=== PATIENT | female | born 1970 | race Caucasian/White ===

== ENCOUNTER 2019-09-04 01:23 | Day surgery (SDC) | payer BC, SELFPAY ==
[2019-08-23 15:20] VITALS: BMI 32.1
--- NOTE | 2019-09-04 00:54 | PM.IMHP ---
H&P: HPI History of Present Illness Chief complaint: endocervical polyp Narrative: Ana Orellana is a 49 year old female with an endocervical polyp. This polyp has been present on speculum exams for past few years, however, appears to have enlarged recently. Patient is currently asymptomatic and denies any unusual vaginal bleeding or spotting. Due to possible recent changes in the characteristics of the polyp, excision was recommended. Review of Systems Review of Systems: All systems reviewed & are unremarkable except as noted in HPI and below Constitutional: Constitutional: Reports as per HPI, Reports no additional constitutional complaints, Denies chills, Denies fever(s), Denies headache(s) and Denies night sweats Eyes: Eyes: Reports as per HPI and Reports no additional eye complaints ENT: Reports system reviewed and no additional complaints, except as documented, Reports as per HPI, Reports Normal hearing present and Denies headache(s) Cardiovascular: Cardiovascular: Reports as per HPI, Reports no additional cardiovascular complaints, Denies chest pain and Denies dyspnea Respiratory: Respiratory: Reports as per HPI, Reports no additional respiratory complaints, Denies cough and Denies dyspnea Gastrointestinal: Gastrointestinal: Reports as per HPI, Reports no additional gastrointestinal complaints, Denies abdominal pain, Denies change in bowel habits, Denies change in stool character, Denies nausea and Denies vomiting Genitourinary: Genitourinary: Reports no additional female genitourinary complaints, Reports as per HPI, Denies abnormal vaginal bleeding, Denies genital lesions, Denies hot flashes, Denies dyspareunia, Denies pelvic pain, Denies sexual dysfunction, Denies urinary incontinence, Denies vaginal discharge, Denies vaginal dryness and Denies vaginal odor Musculoskeletal: Musculoskeletal: Reports no additional musculoskeletal complaints and Reports as per HPI Integumentary/Breasts: Skin/Breast: Reports system reviewed and no additional complaints, except as docu, Reports as per HPI, Denies breast pain and Denies nipple discharge Neurologic: Reports system reviewed and no additional complaints, except as documented, Reports as per HPI, Reports Normal hearing present and Denies headache(s) Psychiatric: Psychiatric: Reports no additional psychiatric complaints, Reports as per HPI, Denies anxiety and Denies depression Endocrine: Endocrine: Reports no additional endocrine complaints and Reports as per HPI Hematologic/Lymphatic: Hematologic/Lymphatic: Reports no additional hematologic/lymphatic complaints and Reports as per HPI Allergic/Immunologic: Allergic/Immunologic: Reports no additional allergic/immunologic complaints and Reports as per HPI [facility] Past Medical History Medical History Anxiety Bipolar disorder Mixed hyperlipidemia Paresthesia and pain of both upper extremities Vaginal delivery Family History Family History Sibling Diabetes mellitus Patient's sister is in good health Mother Diabetes mellitus, Onset Age: 59 Father Hypertension Patient's father is in good health Social History Social History Social History: Smoking status: Never smoker Second hand tobacco smoke exposure: No Alcohol intake: never Substance use: never Substance use type: does not use Living arrangements: with family Occupation/Education: unemployed Gender identity (if verbalized by the patient): Female Meds Home Medications and Allergies Home Medications Medication Instructions Recorded Confirmed Type asenapine maleate 5 mg sublingual 5 mg SUBLINGUAL QPM 05/23/19 08/23/19 History tablet ketoconazole 2 % shampoo 1 applic TOPICAL 2XW 05/23/19 08/23/19 History multivitamin 2 tablet PO DAILY 07/26/19 08/23/19 History benzonatat
--- NOTE | 2019-09-04 06:43 | WPDANESEPPF ---
Anes - Initial Pre Proc Eval Procedure: Operation Date: 09/04/19 07:30 Proposed Procedures p Hysteroscopic Removal Endocervical Polyp - Jaclyn Dumont MD Date/Time: 09/04/19 06:43 Surgeon: Jaclyn Dumont MD Pre Op Diagnosis: endocervical polyp Patient Data Age: 49 Gender: F Height: 5 ft 7 in Weight: 92.99 kg Allergies Allergy/AdvReac Type Severity Reaction Status Date / Time Sulfa (Sulfonamide Allergy Unknown rash Verified 09/04/19 06:33 Antibiotics) Home Medications Medication Instructions Recorded Confirmed Type asenapine maleate 5 mg sublingual 5 mg SUBLINGUAL QPM 05/23/19 09/04/19 History tablet ketoconazole 2 % shampoo 1 applic TOPICAL 2XW 05/23/19 09/04/19 History multivitamin 2 tablet PO DAILY 07/26/19 09/04/19 History benzonatate 200 mg capsule 200 mg PO TID PRN #30 cap 08/28/19 08/28/19 Rx hydrochlorothiazide 12.5 mg tablet 12.5 mg PO QAM #90 tablet 08/28/19 08/28/19 Rx Patient hx anesthesia problems: none Family hx anesthesia problems: none PMFSH Past Medical History Medical History Anxiety Bipolar disorder Mixed hyperlipidemia Paresthesia and pain of both upper extremities Vaginal delivery Family History Family History Sibling Diabetes mellitus Patient's sister is in good health Mother Diabetes mellitus, Onset Age: 59 Father Hypertension Patient's father is in good health Social History Social History Social History: Smoking status: Never smoker Second hand tobacco smoke exposure: No Alcohol intake: never Substance use: never Substance use type: does not use Gender identity (if verbalized by the patient): Female Anes - Eval Final PreProcedure Day of Procedure 09/04/19 06:43 Patient weight: obese Heart: regular rate and rhythm Lungs: clear to auscultation Airway: Mallampati scale class II Neurological: alert and oriented Last oral intake: >/= 8 hours ASA classification: I Emergent: no Anesthetic plan: proceed Anesthesia type and monitoring: general GIVS and standard monitoring Informed Consent: The patient's anesthetic plan and its attendant risks and benefits were discussed with the patient/family/POA. Questions were solicited and answers provided to the satisfaction of the patient/family/POA.
[2019-09-04 06:57] VITALS: BP 143/79; PULSE 108; RESP 14; TEMP 37.2; O2SAT 100; BMI 32.4
[2019-09-04] MEDS: SCOPOLAMINE 1.5 MG PATCH TRANSDERM (07:01)
[2019-09-04] MEDS: LACTATED RINGERS 1,000 ML 30 ML IV CONT (07:01)
--- NOTE | 2019-09-04 07:13 | WPDHPUPDATE1 ---
History and Physical Update Update Date/Time: 09/04/19 07:13 History and Physical has been reviewed, including an updated exam of the patient. There are NO changes in the patient's condition. Risks, benefits, and alternatives have been discussed and questions answered. Patient agrees to proceed with procedure.
[2019-09-04] MEDS: KETOROLAC 30 MG/ML VIAL (*BKC) IV PUSH (07:57)
[2019-09-04 08:06] VITALS: BP 117/63; PULSE 92; RESP 14; O2SAT 98
--- NOTE | 2019-09-04 08:09 | P.OP_ITS ---
Procedure Note - Detailed Date of procedure: 09/04/19 Pre-op diagnosis: endocervical polyp Post-op diagnosis: other (endocervical polyps, endometrial polyp) Procedure performed: Hysteroscopy Dilation and curettage Endocervical polypectomy Description of procedure: The patient was taken to the operating room where she self transferred to the operating room table. She was placed in dorsal supine position. Anesthesia was administered and found to be adequate. The patient was repositioned in dorsal lithotomy position with the use of Victor Manuel stirrups. She was prepped and draped in usual sterile fashion. A red rubber catheter was used to drain the bladder of 1200 cc of clear urine. A bivalve speculum was inserted into the vagina. The cervix was well visualized and a 1.5-2 cm endocervical polyp protruding through the cervical os was well visualized. A single tooth tenaculum was used to grasp the anterior lip of the cervix. 10 cc of 1% lidocaine was used to administer a paracervical block with 5 cc on either side. The cervix was serially dilated to accommodate the hysteroscope. The hysteroscope was slowly introduced through the cervix and into the endometrial cavity so that a thorough evaluation could be completed. The base of the endocervical polyp visible externally was noted just inside of the endocervical canal. Incidentally, however, a few endometrial polyps were also visualized once the hysteroscope was advanced. Scant endometrial tissue was also noted. The tubal ostia were not seen. A few pictures were taken of the endometrial cavity and endocervical canal. The hysteroscope was withdrawn. With the use of ring forceps, the larger endocervical polyp was grasped just inside of the endocervical canal as close to the base as possible. The ring forceps were rotated and the polyp was completely excised. This polyp was prepared to be sent to pathology for analysis. Due to the incidental finding of endometrial polyps, decision was made to perform a curettage of the endometrial cavity. Using a medium-sized curette, the endometrial cavity was explored and small to medium sized fragments of polypoid tissue was removed. The endometrial curettings were prepared separately to be sent to pathology. A 2nd pass with the hysteroscope was performed, however, visualization was obscured by blood tinged fluid. Hysteroscope was removed. A minimal amount of bleeding was noted within the endocervical canal. Monsel's was applied with excellent hemostasis. The tenaculum was removed. A pinpoint area of bleeding was noted from the tenaculum puncture site. This area was made hemostatic with Monsel's. E xcellent hemostasis was noted. The vagina was cleansed and dried and the speculum was removed. The remainder of the patient was cleansed and dried. She was taken out of dorsal lithotomy position and awakened from anesthesia without difficulty. The patient was transported to the recovery room in stable condition. All instrument counts were correct in the procedure. Anesthesia: MAC Surgeon: Jaclyn Dumont MD Estimated blood loss (mL): 10 IV fluids (mL): 700 Urine output (mL): 1,200 Drains: No Packing: No Pathology: yes (endocervical polyp, endometrial curettings) Complications: No immediate complications Condition: stable Disposition: same day Findings: Hysteroscopic fluid: 400cc in/400cc out Intraoperative findings: approx. 1.5-2 cm endocervical polyp, few endometrial polyps, scant endometrial tissue
[2019-09-04 08:30] VITALS: BP 120/69; PULSE 83; RESP 114
[2019-09-04 09:10] VITALS: BP 132/81; PULSE 82; RESP 14
== END 2019-09-04 09:00 | disposition home or self-care (01) ==
PROVIDERS: PCP Family Medicine; Visit Provider Student in an Organized Health Care Education/Training Program
PROC: 0U5B8ZZ Destruction of Endometrium, Via Natural or Artificial Opening Endoscopic (ICD-10-PCS; CPT 58563; principal; 2019-09-04 07:30)
DX: N84.1 Polyp of cervix uteri (principal); E78.2 Mixed hyperlipidemia; F31.9 Bipolar disorder, unspecified; F41.9 Anxiety disorder, unspecified; E66.9 Obesity, unspecified; Z68.32 Body mass index [BMI] 32.0-32.9, adult
CPT/HCPCS: 58558; 88305; A9270; J0131; J1885; J2250; J2405; J2704; J3010; J7030; J7120

== ENCOUNTER 2019-09-19 10:11 | Outpatient (CLI) | payer BC, SELFPAY ==
--- NOTE | 2019-09-19 10:26 | ECG_ITS ---
Measurements Intervals [place] Rate: 92 P: 51 CA: 168 QRS: 33 QRSD: 76 T: 45 QT: 322 QTc: 398 Interpretive Statements SINUS RHYTHM NORMAL ECG Electronically Signed On 09-19-2019 11:05:15 [employer] by Randy Bess D.O.
== END 2019-09-19 10:12 | disposition home or self-care (01) ==
PROVIDERS: PCP Family Medicine; Visit Provider Student in an Organized Health Care Education/Training Program
DX: R00.0 Tachycardia, unspecified (principal)
CPT/HCPCS: 93005

== ENCOUNTER → 2020-07-31 15:51 | Outpatient (CLI) | payer BC, SELFPAY ==
--- NOTE | ~2020-07-31 | MM_ITS ---
EXAMINATION: MM screening shaun BI w malcolm HISTORY: Screening mammogram TECHNIQUE: Craniocaudal and mediolateral oblique 3-D tomosynthesis images were obtained and synthetic 2-D images were generated. CAD analysis was submitted and interpreted. COMPARISON: 08/08/2019 diagnostic right digital mammogram and limited right breast ultrasound 07/25/2019, 06/28/2018 bilateral digital screening mammogram examinations 06/16/2017 bilateral diagnostic digital mammogram and Limited bilateral breast ultrasound 05/24/2017 bilateral digital screening mammogram BREAST PARENCHYMAL COMPOSITION: There are scattered areas of fibroglandular density. FINDINGS: Stable bilateral subcentimeter circumscribed opacities are again noted, previously noted is intramammary lymph nodes or cysts There is no evidence of suspicious mass, calcification, or archite ctural distortion to suggest malignancy in either breast. There has been no suspicious interval caballero e. IMPRESSION: 1. No mammographic evidence of malignancy. 2. Recommend routine screening mammography in one year. BI-RADS Category 2: Benign finding(s). Reviewed, dictated and finalized at location A. [employer]
== END ==
PROVIDERS: PCP Family Medicine; Visit Provider Student in an Organized Health Care Education/Training Program
DX: Z12.31 Encounter for screening mammogram for malignant neoplasm of breast (principal)
CPT/HCPCS: 77063; 77067

== ENCOUNTER → 2021-09-10 11:24 | Outpatient (CLI) | payer BC, SELFPAY ==
--- NOTE | ~2021-09-10 | MM_ITS ---
EXAMINATION: MM screening shaun BI w malcolm HISTORY: Screening mammogram TECHNIQUE: Craniocaudal and mediolateral oblique 3-D tomosynthesis images were obtained and synthetic 2-D images were generated. CAD analysis was submitted and interpreted. COMPARISON: 07/31/2020 bilateral screening mammogram / diagnostic right mammogram and limited right breast ultrasound 08/04/2019, 06/28/2018 bilateral screening mammogram examination BREAST PARENCHYMAL COMPOSITION: There are scattered areas of fibroglandular density. FINDINGS: There is no evidence of suspicious mass, calcification, or architectural distortion to sugg est malignancy in either breast. There has been no suspicious interval change. IMPRESSION: 1. No mammographic evidence of malignancy. 2. Recommend routine screening mammography in one year. BI-RADS Category 1: Negative Reviewed, dictated and finalized at location A. SORTER
== END ==
PROVIDERS: PCP Internal Medicine; Visit Provider Student in an Organized Health Care Education/Training Program
DX: Z12.31 Encounter for screening mammogram for malignant neoplasm of breast (principal)
CPT/HCPCS: 77063; 77067